=== PATIENT | male | born 1995 | race Asian ===

== ENCOUNTER 2019-06-26 05:22 | Emergency (ER) | payer SELFPAY ==
[~2019-06-26] VITALS: Ht 180.3 cm; Wt 65.8 kg
--- NOTE | 2019-06-26 05:30 | NUR ---
PT AAOX4. BIBS. C/O EPIGASTRIC AND LUQ PAIN. [place], VOMITING AND DIZZYNESS. PLACED ON MONITOR AND PULSE OX. VSS. NO ACUTE DISTRESS NOTED. WILL CONTINUE TO MONITOR.
[2019-06-26] MEDS ORDERED: ONDANSETRON HCL/PF 4 MG/2 ML VIAL ONE ×2 (05:39→06:42)
[2019-06-26 05:55] LABS: BASOPHILS % (AUTO) 0.4 % (0.0-2.0); EOSINOPHILS % (AUTO) 1.2 % (0.0-6.0); HEMATOCRIT 50 % (39-51); HEMOGLOBIN 16.4 g/dL (13.5-17.5); LYMPHOCYTES # (AUTO) 3.4 /CMM (0.8-4.8); LYMPHOCYTES % (AUTO) 33.2 % (20.0-44.0); MEAN CORPUSCULAR HGB CONC 33 g/dl (31.0-36.0); MEAN CORPUSCULAR VOLUME 82 fL (80-96); MONOCYTES # (AUTO) 0.7 /CMM (0.1-1.30); MONOCYTES % (AUTO) 6.8 % (2.0-12.0); NEUTROPHILS # (AUTO) 5.9 /CMM (1.8-8.9); NEUTROPHILS % (AUTO) 58.4 % (43.0-81.0); PLATELET COUNT (AUTO) 230 /CMM (150-450); RED BLOOD CELL COUNT(AUTO) 6.13 MIL/uL (4.5-6.0); WHITE BLOOD COUNT (AUTO) 10.1 K/uL (4.3-11.0)
[2019-06-26] MEDS ORDERED: ONDANSETRON HCL/PF 4 MG/2 ML VIAL IVP ONE ×2 (06:00→07:00)
--- NOTE | 2019-06-26 06:01 | NUR ---
Patient is resting comfortably in bed with eyes closed. Easily aroused. VSS.
[2019-06-26 06:05] LABS: CALCIUM, SERUM 9.1 mg/dL (8.5-10.1); CREATININE 0.6 mg/dL (0.6-1.3); POTASSIUM 4.1 mmol/L (3.5-5.1)
[2019-06-26 06:09] LABS: ALBUMIN 4.1 g/dL (3.4-5.0); BILIRUBIN,DIRECT 0.1 mg/dL (0.0-0.2); BILIRUBIN,TOTAL 0.5 mg/dL (0.2-1.0); TOTAL PROTEIN, SERUM 8.8 g/dL (6.4-8.2)
[2019-06-26] MEDS ORDERED: HYDROMORPHONE 1 MG/1 ML DISP.SYRIN ONE (06:43)
[2019-06-26] MEDS ORDERED: HYDROMORPHONE INJ 2 MG/ML DISP.SYRIN IV ONE (07:00)
--- NOTE | 2019-06-26 07:23 | NUR ---
IV removed. Catheter intact and site benign. Pressure and 4x4 applied to site. No bleeding noted.
[2019-06-26 07:39] VITALS: BP 128/78
--- NOTE | 2019-06-26 07:39 | NUR ---
Patient discharged to home in stable condition. Written and verbal after care instructions given. Patient verbalizes understanding of instruction and RX. Pt ambulated with steady gait. Pt picked up by family member. VSS.
== END 2019-06-26 08:04 | disposition home or self-care (01) ==
LOC: EDBD 05:28 → ER 05:28
DX: R10.13 Epigastric pain (principal); R11.2 Nausea with vomiting, unspecified; Z98.890 Other specified postprocedural states
CPT/HCPCS: 36415; 80048; 80076; 82140; 83690; 85025; 96374; 96375; 96376; 99284; J1170; J2405 ×2